=== PATIENT | female | born 1970 | race Caucasian/White ===

== ENCOUNTER → 2016-07-22 | Outpatient (REF) | payer BC ==
[2016-07-22 17:06] LABS: ALBUMIN/GLOBULIN RATIO 1.21 (1.00-1.93); ALKALINE PHOSPHATASE 68 U/L (45-117); ALT/SGPT 26 U/L (12-78); ANION GAP 8 MEQ/L (8-16); AST/SGOT 18 U/L (15-37); BILIRUBIN,TOTAL 0.5 MG/DL (0.2-1.0); BLOOD UREA NITROGEN 11 MG/DL (7-18); CALCIUM LEVEL 9.5 MG/DL (8.5-10.1); CARBON DIOXIDE LEVEL 29 MEQ/L (21-32); CHLORIDE LEVEL 104 MEQ/L (98-107); CREATININE FOR GFR 0.87 MG/DL (0.55-1.02); FREE T4 0.99 NG/DL (0.76-1.46); GLOMERULAR FILTRATION RATE > 60.0 (>58); GLUCOSE, FASTING 81 MG/DL (70-105); POTASSIUM SERUM 4.3 MEQ/L (3.5-5.1); SODIUM LEVEL 141 MEQ/L (136-145); TOTAL PROTEIN 7.3 GM/DL (6.4-8.2)
[2016-07-22 19:04] LABS: MEAN CORPUSCULAR HEMOGLOBIN 30.1 pg (27.0-33.0); MEAN CORPUSCULAR HGB CONC 32.3 g/dl (32.0-36.5); MEAN CORPUSCULAR VOLUME 93.1 fl (80.0-96.0); RED CELL DISTRIBUTION WIDTH 12.2 % (11.5-14.5); WHITE BLOOD COUNT 4.2 K/mm3 (4.0-10.0)
== END ==
LOC: M SFHCLERA 14:22
PROVIDERS: ATTEND Family Medicine
DX: R42 Dizziness and giddiness (principal); E55.9 Vitamin D deficiency, unspecified

== ENCOUNTER → 2016-10-18 | Outpatient (CLI) | payer OTHER ==
--- NOTE | 2016-10-18 12:32 | REPMRS ---
Patient History The patient states she has not had a clinical breast exam in over a year. Family history of unknown cancer in maternal grandmother at age 28 and premenopausal breast cancer in paternal cousin at age 35. Taking hormonal contraceptives for 9 years. Digital Mammo Screening Bilat: October 18, 2016 - Exam #: [id number] Bilateral CC and MLO view(s) were taken. Technologist: Fany Bullock, Technologist Prior study comparison: March 07, 2013, right breast digital mammo diagnostic unilateral performed at [facility]. September 24, 2011, digital woman screen mammo, performed at [facility]. FINDINGS: There are scattered fibroglandular densities. There has been no change in the appearance of the mammogram from the prior studies. There is a mild amount of residual fibroglandular tissue which is fairly symmetric. There is no interval development of dominant mass, architectural distortion, or clustered microcalcification suggestive of malignancy. ASSESSMENT: BI-RADS/ACR category 1 mammogram. Negative. Recommendation Routine screening mammogram in 1 year (for women over age 40). This mammogram was interpreted with the aid of an FDA-approved computer-aided dectection system. Electronically Signed By: Steven Villalta MD 10/18/16 [id number]
== END ==
LOC: M RAD 11:16
PROVIDERS: ATTEND Physician Assistant Medical
DX: Z12.31 Encounter for screening mammogram for malignant neoplasm of breast (principal)

== ENCOUNTER → 2017-11-04 | Outpatient (CLI) | payer OTHER | LOC: M RAD 08:15 | DX: Z12.31 Encounter for screening mammogram for malignant neoplasm of breast (principal) | CPT/HCPCS: 77067 ==

== ENCOUNTER → 2018-05-25 | Outpatient (REF) | payer BC ==
[2018-05-25 12:05] LABS: HEMATOCRIT 41.3 % (36.0-47.0); HEMOGLOBIN 13.6 g/dl (12.0-15.5); MEAN CORPUSCULAR HEMOGLOBIN 31.1 pg (27.0-33.0); MEAN CORPUSCULAR HGB CONC 32.9 g/dl (32.0-36.5); MEAN CORPUSCULAR VOLUME 94.3 fl (80.0-96.0); PLATELET COUNT, AUTOMATED 231 10^3/uL (150-450); RED BLOOD COUNT 4.38 10^6/uL (4.00-5.40); RED CELL DISTRIBUTION WIDTH 11.8 % (11.5-14.5); WHITE BLOOD COUNT 4.2 10^3/uL (4.0-10.0)
[2018-05-25 12:19] LABS: ALBUMIN 3.8 GM/DL (3.2-5.2); ALBUMIN/GLOBULIN RATIO 1.19 (1.00-1.93); ALKALINE PHOSPHATASE 46 U/L (45-117); ALT/SGPT 23 U/L (12-78); ANION GAP 4 MEQ/L (8-16); AST/SGOT 18 U/L (7-37); BILIRUBIN,TOTAL 0.4 MG/DL (0.2-1.0); BLOOD UREA NITROGEN 21 MG/DL (7-18); CALCIUM LEVEL 9.1 MG/DL (8.5-10.1); CARBON DIOXIDE LEVEL 30 MEQ/L (21-32); CHLORIDE LEVEL 104 MEQ/L (98-107); CHOLESTEROL LEVEL 214 MG/DL (<200); CHOLESTEROL RISK RATIO 4.367 (<5); CREATININE FOR GFR 0.87 MG/DL (0.55-1.30); FREE T4 0.91 NG/DL (0.76-1.46); GLOMERULAR FILTRATION RATE > 60.0 (>58); GLUCOSE, FASTING 93 MG/DL (70-100); HDL CHOLESTEROL 49 MG/DL (>40); LDL CHOLESTEROL 150 MG/DL (<100); NON-HDL-C 165 MG/DL; POTASSIUM SERUM 4.4 MEQ/L (3.5-5.1); SODIUM LEVEL 138 MEQ/L (136-145); TRIGLYCERIDES LEVEL 76 MG/DL (<150)
[2018-05-25 13:07] LABS: TOTAL 25(OH) VITAMIN D 54.5 NG/ML (30.0-100.0)
== END ==
LOC: M SFHCPLAZ 08:13
DX: D64.9 Anemia, unspecified (principal); Z13.220 Encounter for screening for lipoid disorders; F32.9 Major depressive disorder, single episode, unspecified; E55.9 Vitamin D deficiency, unspecified
CPT/HCPCS: 84443

== ENCOUNTER → 2018-11-07 | Outpatient (CLI) | payer OTHER ==
--- NOTE | 2018-11-07 10:02 | REPMRS ---
Patient History The patient states she has not had a clinical breast exam in over a year. Family history of premenopausal breast cancer at age 35 in paternal cousin, unknown cancer at age 28 in maternal grandmother. Taking hormonal contraceptives for 9 years. 3D TOMOSYNTHESIS WAS PERFORMED. Digital Mammo Screening Bilat: November 07, 2018 - Exam #: [id number] Bilateral CC and MLO view(s) were taken. Technologist: Fany Bullock, Technologist Prior study comparison: November 04, 2017, bilateral digital mammo screening bilat performed at [facility]. October 18, 2016, bilateral digital mammo screening bilat performed at [facility]. FINDINGS: There are scattered fibroglandular densities. There has been no change in the appearance of the mammogram from the prior studies. There is a mild amount of residual fibroglandular tissue which is fairly symmetric. There is no interval development of dominant mass, architectural distortion, or clustered microcalcification suggestive of malignancy. Assessment: BI-RADS/ACR category 1 mammogram. Negative Mammogram. Recommendation Routine screening mammogram in 1 year (for women over age 40). This mammogram was interpreted with the aid of an FDA-approved computer-aided dectection system. Electronically Signed By: Steven Villalta MD 11/07/18 1002
== END ==
LOC: M RAD 08:20
PROVIDERS: ATTEND Physician Assistant Medical
DX: Z12.31 Encounter for screening mammogram for malignant neoplasm of breast (principal); Z80.3 Family history of malignant neoplasm of breast

== ENCOUNTER → 2019-07-17 | Outpatient (CLI) | payer BC, OTHER ==
[2019-07-17 13:37] LABS: HEMOGLOBIN A1c 5.5 %
[2019-07-17 13:58] LABS: FOLATE 10.9 NG/ML; FREE T4 0.98 NG/DL (0.76-1.46); VITAMIN B12 LEVEL 311 PG/ML
[2019-07-18 07:20] LABS: TOTAL PROTEIN 6.7 GM/DL (6.4-8.2)
[2019-07-19 11:58] LABS: ALBUMIN 4.16 GM/DL (3.29-5.55); ALBUMIN % 62.1 % (55.8-66.1); ALPHA-1-GLOBULIN % 3.3 % (2.9-4.9); ALPHA-1-GLOBULINS 0.22 GM/DL (0.17-0.41); ALPHA-2-GLOBULINS 0.52 GM/DL (0.42-0.99); ALPHA-2-GLOBULINS % 7.8 % (7.1-11.8); BETA-2-GLOBULINS 0.34 GM/DL (0.19-0.55); BETA-2-GLOBULINS % 5.1 % (3.2-6.5); GAMMA GLOBULIN % 15.7 % (11.1-18.8); GAMMA GLOBULINS 1.05 GM/DL (0.65-1.58)
[2019-07-22 00:06] LABS: ANTI DOUBLE STRAND-DNA AB 2 IU/mL (0-9); ANTINUCLEAR ANTIBODIES DIRECT Positive (Negative); RNP ANTIBODIES <0.2 AI (0.0-0.9); SJOGREN'S ANTI SS-A <0.2 AI (0.0-0.9); SJOGREN'S ANTI SS-B 2.1 AI (0.0-0.9); SMITH ANTIBODIES <0.2 AI (0.0-0.9); VITAMIN B6,PYRIDOXAL PHOSPHATE 12.9 ug/L (2.0-32.8); VITAMIN E(ALPHA TOCOPHEROL) 15.4 mg/L (7.0-25.1); VITAMIN E(GAMMA TOCOPHEROL) 0.8 mg/L (0.5-5.5)
== END ==
LOC: M WUC 10:22
PROVIDERS: ATTEND Psychiatry & Neurology Neurology
DX: E11.40 Type 2 diabetes mellitus with diabetic neuropathy, unspecified (principal); E07.9 Disorder of thyroid, unspecified; M35.00 Sjogren syndrome, unspecified

== ENCOUNTER → 2019-12-04 | Outpatient (CLI) | payer BC ==
--- NOTE | 2019-12-04 08:08 | REPMRS ---
Patient History The patient states she has not had a clinical breast exam in over a year. Family history of premenopausal breast cancer at age 35 in paternal cousin, unknown cancer at age 28 in maternal grandmother. Taking hormonal contraceptives for 9 years. Digital Woman Screen Mammo: December 04, 2019 - Exam #: [id number] Bilateral CC and MLO view(s) were taken. Technologist: Liliane Carlisle, Technologist Prior study comparison: November 07, 2018, bilateral digital mammo screening bilat, performed at [facility]. November 04, 2017, bilateral digital mammo screening bilat, performed at [facility]. October 18, 2016, bilateral digital mammo screening bilat, performed at [facility]. FINDINGS: There are scattered fibroglandular densities. The Volpara volumetric breast density category is:B. There has been no change in the appearance of the mammogram from the prior studies. There is a mild amount of scattered fibroglandular density which is fairly symmetric. There is no interval development of dominant mass, architectural distortion, or grouped microcalcification suggestive of malignancy. 3-D tomosynthesis shows no additional findings. Assessment: BI-RADS/ACR category 1 mammogram. Negative Mammogram. Recommendation Routine screening mammogram of both breasts in 1 year (for women over age 40). This patient's Lifetime Breast Cancer Risk is estimated at 9.7 %. This mammogram was interpreted with the aid of an FDA-approved computer-aided dectection system. Electronically Signed By: Justin Jacques MD 12/04/19 0839
== END ==
LOC: M WHC 07:17
PROVIDERS: ATTEND Physician Assistant Medical
DX: Z12.31 Encounter for screening mammogram for malignant neoplasm of breast (principal)

== ENCOUNTER → 2020-12-05 | Outpatient (CLI) | payer OTHER ==
--- NOTE | 2020-12-05 10:06 | REPMRS ---
Patient History The patient states she has not had a clinical breast exam in over a year. Family history of premenopausal breast cancer at age 35 in paternal cousin, unknown cancer at age 28 in maternal grandmother. Taking hormonal contraceptives for 9 years. No breast complaints today Patient signed the MRS sheet 1st covid vaccine 06/18/20-left arm-Moderna 2nd covid vaccine 07/16/20-left arm Patient has had a 60lb intentional weight loss in the last year Priors on PACS Patient Identification Verified Patient denied Digital Woman Screen Mammo: December 05, 2020 - Exam #: [id number] Bilateral CC and MLO view(s) were taken. Technologist: Liliane Carlisle, Technologist Prior study comparison: December 04, 2019, bilateral digital woman screen mammo performed at [facility]. November 07, 2018, bilateral digital mammo screening bilat, performed at [facility]. November 04, 2017, bilateral digital mammo screening bilat, performed at [facility]. FINDINGS: The breast tissue is heterogeneously dense. This may lower the sensitivity of mammography. The Volpara volumetric breast density category is: C. There is a moderate amount of heterogeneously dense fibroglandular tissue which is fairly symmetric. There is no interval development of dominant mass, architectural distortion, or grouped microcalcification typical of malignancy. There has been no change in the appearance of the mammogram from the prior studies. 3-D tomosynthesis shows no additional findings. Assessment: BI-RADS/ACR category 1 mammogram. Negative Mammogram. Recommendation Routine screening mammogram of both breasts in 1 year (for women over age 40). This patient's [facility] Lifetime Breast Cancer RIsk is estimated at 9.5 %. This mammogram was interpreted with the aid of an FDA-approved computer-aided dectection system. Electronically Signed By: Justin Jacques MD 12/05/20 [id number]
== END ==
LOC: M WHC 08:06
PROVIDERS: ATTEND Physician Assistant Medical
DX: Z12.31 Encounter for screening mammogram for malignant neoplasm of breast (principal); Z80.3 Family history of malignant neoplasm of breast

== ENCOUNTER 2021-07-10 17:58 | Emergency (ER) | payer BC, OTHER ==
[~2021-07-10] VITALS: Ht 175.3 cm; Wt 81.5 kg
[2021-07-10 18:11] VITALS: BP 136/86
[2021-07-10 23:03] VITALS: O2SAT 99
[2021-07-10] MEDS ORDERED: PRED20TA PO (23:16)
== END 2021-07-11 00:16 | disposition home or self-care (01) ==
LOC: M ED 17:58
DX: U07.1 COVID-19 (principal); R00.1 Bradycardia, unspecified

== ENCOUNTER 2021-11-19 07:13 | Emergency (ER) | payer BC, OTHER ==
[~2021-11-19] VITALS: Ht 175.3 cm; Wt 75.0 kg
[~2021-11-19 07:13] MED LIST: PRED20TA PO
[2021-11-19] MEDS ORDERED: diphenhydrAMINE 50MG/ML VIAL (J1200) IV STA (07:33)
[2021-11-19] MEDS ORDERED: NS 1,000 ML IV ONE ×2 (07:35→08:50)
[2021-11-19] MEDS ORDERED: KETOROLAC 30 MG/ML 1ML VIAL IV ONE (07:35)
[2021-11-19] MEDS ORDERED: METOCLOPRAMIDE INJ 10MG/2ML VIAL (J2765 PER 1) IV ONE (07:35)
[2021-11-19 08:22] LABS: BASO % 0.4 % (0.0-1.0); HEMATOCRIT 42.7 % (36.0-47.0); HEMOGLOBIN 14.4 g/dl (12.0-15.5); LYMPH # 0.4 10^3/uL (1.5-5.0); LYMPH % 6.9 % (24.0-44.0); MEAN CORPUSCULAR HEMOGLOBIN 32.1 pg (27.0-33.0); MEAN CORPUSCULAR HGB CONC 33.7 g/dl (32.0-36.5); MEAN CORPUSCULAR VOLUME 95.3 fl (80.0-96.0); MONO # 0.4 10^3/uL (0.0-0.8); MONO % 8.2 % (2.0-8.0); NEUTROPHILS # 4.4 10^3/uL (1.5-8.5); NEUTROPHILS % 84.3 % (36.0-66.0); PLATELET COUNT, AUTOMATED 162 10^3/uL (150-450); RED BLOOD COUNT 4.48 10^6/uL (4.00-5.40); WHITE BLOOD COUNT 5.2 10^3/uL (4.0-10.0)
[2021-11-19 08:46] LABS: ALBUMIN 3.3 GM/DL (3.2-5.2); ALT/SGPT 244 U/L (12-78); BILIRUBIN,TOTAL 0.3 MG/DL (0.2-1.0); BLOOD UREA NITROGEN 9 MG/DL (7-18); CALCIUM LEVEL 9.5 MG/DL (8.5-10.1); CARBON DIOXIDE LEVEL 31 MEQ/L (21-32); CHLORIDE LEVEL 100 MEQ/L (98-107); GLOMERULAR FILTRATION RATE > 60.0 (>51); GLUCOSE, FASTING 102 MG/DL (70-100); POTASSIUM SERUM 4.5 MEQ/L (3.5-5.1); SODIUM LEVEL 137 MEQ/L (136-145)
[2021-11-19] MEDS ORDERED: fentaNYL 100 MCG/2 ML INJECTION IV ONE (10:15)
[2021-11-19] MEDS ORDERED: CEPH500C PO (10:29)
[2021-11-19 11:00] VITALS: BP 114/68
== END 2021-11-19 11:06 | disposition home or self-care (01) ==
LOC: EDBD 07:13 → M ED 07:13
DX: L03.90 Cellulitis, unspecified (principal); Z79.52 Long term (current) use of systemic steroids
CPT/HCPCS: 80053; 83605; 85025; 86618; 87040; 87486; 87581; 87633; 87798; 96361; 96374; 96375; 99285; J1200; J1885; J2765

== ENCOUNTER → 2022-01-08 | Outpatient (CLI) | payer OTHER ==
[~2022-01-08] MED LIST changes: +CEPH500C PO
== END ==
LOC: M WHC 06:58
PROVIDERS: ATTEND Physician Assistant Medical
DX: Z12.31 Encounter for screening mammogram for malignant neoplasm of breast (principal)

== ENCOUNTER → 2022-02-12 | Outpatient (CLI) | payer BC, OTHER ==
[2022-02-12 14:34] LABS: EOS # 0.1 10^3/uL (0.0-0.5); EOS % 1.3 % (0.0-3.0); HEMATOCRIT 41.6 % (36.0-47.0); HEMOGLOBIN 13.4 g/dl (12.0-15.5); LYMPH # 0.8 10^3/uL (1.5-5.0); MEAN CORPUSCULAR HEMOGLOBIN 30.7 pg (27.0-33.0); MEAN CORPUSCULAR HGB CONC 32.2 g/dl (32.0-36.5); MEAN CORPUSCULAR VOLUME 95.2 fl (80.0-96.0); MONO # 0.5 10^3/uL (0.0-0.8); MONO % 12.2 % (2.0-8.0); NEUTROPHILS # 2.5 10^3/uL (1.5-8.5); NEUTROPHILS % 64.2 % (36.0-66.0); PLATELET COUNT, AUTOMATED 220 10^3/uL (150-450); RED BLOOD COUNT 4.37 10^6/uL (4.00-5.40); WHITE BLOOD COUNT 3.9 10^3/uL (4.0-10.0)
[2022-02-12 15:29] LABS: ALBUMIN 3.7 GM/DL (3.2-5.2); ALT/SGPT 30 U/L (12-78); BILIRUBIN,TOTAL 0.5 MG/DL (0.2-1.0); BLOOD UREA NITROGEN 8 MG/DL (7-18); CALCIUM LEVEL 9.3 MG/DL (8.5-10.1); CARBON DIOXIDE LEVEL 27 MEQ/L (21-32); CHLORIDE LEVEL 105 MEQ/L (98-107); CHOLESTEROL LEVEL 200 MG/DL (<200); CHOLESTEROL RISK RATIO 3.125 (<5); CREATININE FOR GFR 0.77 MG/DL (0.55-1.30); GLOMERULAR FILTRATION RATE > 60.0 (>51); GLUCOSE, FASTING 82 MG/DL (70-100); HDL CHOLESTEROL 64 MG/DL (>40); LDL CHOLESTEROL 124 MG/DL (<100); NON-HDL-C 136 MG/DL; POTASSIUM SERUM 4.5 MEQ/L (3.5-5.1); SODIUM LEVEL 137 MEQ/L (136-145); TOTAL PROTEIN 6.7 GM/DL (6.4-8.2); TRIGLYCERIDES LEVEL 58 MG/DL (<150)
[2022-02-12 15:31] LABS: HEMOGLOBIN A1c 5.3 %
[2022-02-12 15:58] LABS: TOTAL 25(OH) VITAMIN D 21.4 NG/ML (30.0-100.0)
== END ==
LOC: M PLALAB 09:52
PROVIDERS: ATTEND Physician Assistant Medical
DX: Z13.1 Encounter for screening for diabetes mellitus (principal); Z13.220 Encounter for screening for lipoid disorders; K21.9 Gastro-esophageal reflux disease without esophagitis; F41.9 Anxiety disorder, unspecified

== ENCOUNTER → 2022-05-14 | Outpatient (REF) | payer BC, OTHER ==
[2022-05-14 19:21] LABS: BLOOD UREA NITROGEN 20 MG/DL (9-23); CALCIUM LEVEL 9.8 MG/DL (8.5-10.1); CARBON DIOXIDE LEVEL 31 MMOL/L (20-31); CHLORIDE LEVEL 102 MMOL/L (98-107); CREATININE FOR GFR 0.89 MG/DL (0.55-1.30); GLOMERULAR FILTRATION RATE > 60.0 (>51); GLUCOSE, FASTING 89 MG/DL (60-100); POTASSIUM SERUM 4.5 MMOL/L (3.5-5.1); SODIUM LEVEL 140 MMOL/L (136-145)
== END ==
LOC: M PLALAB 17:03
PROVIDERS: ATTEND Family Medicine
DX: Z01.810 Encounter for preprocedural cardiovascular examination (principal)

== ENCOUNTER → 2022-11-05 | Outpatient (CLI) | payer BC, OTHER ==
[2022-11-05 13:43] LABS: FOLLICLE STIMULATING HORMONE 52.6 mIU/ML; PTH INTACT 69.6 PG/ML (18.5-88.0); THYROID STIMULATING HORMONE 1.472 uIU/ML (0.55-4.78)
[2022-11-05 13:44] LABS: TOTAL 25(OH) VITAMIN D 23.8 NG/ML (20.0-100.0)
== END ==
LOC: M PLALAB 09:40
PROVIDERS: ATTEND Physician Assistant Medical
DX: N95.1 Menopausal and female climacteric states (principal); E55.9 Vitamin D deficiency, unspecified

== ENCOUNTER → 2023-03-24 | Outpatient (CLI) | payer OTHER | LOC: M WHC 16:18 | PROVIDERS: ATTEND Physician Assistant Medical | DX: Z12.31 Encounter for screening mammogram for malignant neoplasm of breast (principal) ==

== ENCOUNTER → 2024-03-26 | Outpatient (CLI) | payer OTHER | LOC: M WHC 13:32 | PROVIDERS: ATTEND Physician Assistant Medical | DX: Z12.31 Encounter for screening mammogram for malignant neoplasm of breast (principal); R92.311 Mammographic fatty tissue density, right breast ==

== ENCOUNTER → 2025-03-27 | Outpatient (CLI) | payer OTHER | LOC: M WHC 10:24 | PROVIDERS: ATTEND Internal Medicine | DX: Z12.31 Encounter for screening mammogram for malignant neoplasm of breast (principal) ==